=== PATIENT | male | born 1975 | race Asian ===

== ENCOUNTER → 2019-05-09 | Outpatient (CLI) | payer SELFPAY ==
[~2019-05-09] MED LIST: ALBU90OI INH
[2019-05-10 00:06] LABS: HBSAG SCREEN Negative (Negative); HEP A AB, IGM Negative (Negative); HEP B CORE AB, IGM Negative (Negative); HEP C VIRUS AB <0.1 (0.0-0.9)
== END | disposition home or self-care (01) ==
LOC: LAB EV 12:42 → LAB SHORT 12:42
PROVIDERS: Physician Assistant
DX: R60.9 Edema, unspecified (principal)
CPT/HCPCS: 80074